=== PATIENT | male | born 1975 | race Caucasian/White ===

== ENCOUNTER 2017-03-04 21:48 | Inpatient (IN) | payer BC ==
[~2017-03-04] VITALS: Ht 182.9 cm; Wt 87.5 kg
[~2017-03-04 21:48] MED LIST: ANTIDEPRESSANT; FLEXERIL 1010 MG/TAB PO; FLEXERIL10 MG PO; LORTAB 5/500 501 TAB PO; NAPROSYN500 MG PO; NORCO 325 MG-51 TAB PO
[2017-03-04] MEDS ORDERED: CLEOCIN HC150 MG/CAP PO (21:55)
[2017-03-04 23:21] LABS: BASO % 0.2 % (0.0-2.0); EOS % 0.2 % (0-4.0); GRAN # 17.2 (1.4-6.5); GRAN % 87.3 % (42.2-75.2); HEMATOCRIT 46.3 % (42.0-52.0); HEMOGLOBIN 15.5 g/dl (13.5-18.0); LYMPH # 1.6 (1.2-3.4); LYMPH % 7.9 % (20.0-51.0); MEAN CELL VOLUME 97 fl (80.0-100.0); MEAN CORPUSCULAR HEMOGLOBIN 33 pg (27.0-31.0); MEAN CORPUSCULAR HGB CONC 34 g/dl (33.0-37.0); MEAN PLATELET VOLUME 10.5 fl (7.4-10.4); MONO # 0.8 (0.1-0.6); MONO % 3.9 % (1.7-9.3); PLATELET COUNT 259 K/mm3 (130-400); RED BLOOD COUNT 4.77 M/mm3 (4.20-5.60); REDCELL DISTRIBUTION WIDTH-CV 12.4 % (11.5-14.5)
[2017-03-04 23:31] LABS: CALCIUM 9.8 mg/dL (8.4-10.2); CREATININE, serum 0.79 mg/dL (0.66-1.25); POTASSIUM 4.3 mmol/L (3.4-5.0); TOTAL PROTEIN 8.3 gm/dL (6.4-8.2)
[2017-03-04 23:39] LABS: ALBUMIN 4.8 gm/dL (3.5-5.0)
[2017-03-04 23:45] LABS: C-REACTIVE PROTEIN 15.8 mg/dL (0.0-0.9)
[2017-03-05] VITALS (787 sets, daily range): BP systolic 110–141; BP diastolic 32–91; PULSE 84–120; TEMP 96.9–99.8; O2SAT 66–100
[2017-03-05 05:46] LABS: HEMATOCRIT 39.7 % (42.0-52.0); MEAN CELL VOLUME 96 fl (80.0-100.0); MEAN CORPUSCULAR HEMOGLOBIN 32 pg (27.0-31.0); MEAN CORPUSCULAR HGB CONC 34 g/dl (33.0-37.0); MEAN PLATELET VOLUME 10.2 fl (7.4-10.4); PLATELET COUNT 241 K/mm3 (130-400); RED BLOOD COUNT 4.12 M/mm3 (4.20-5.60); REDCELL DISTRIBUTION WIDTH-CV 12.5 % (11.5-14.5)
[2017-03-05 05:52] LABS: HEMOGLOBIN 13.3 g/dl (13.5-18.0)
[2017-03-05 05:59] LABS: CREATININE, serum 0.74 mg/dL (0.66-1.25); POTASSIUM 3.9 mmol/L (3.4-5.0)
[2017-03-06] VITALS (752 sets, daily range): BP systolic 102–142; BP diastolic 65–97; PULSE 80–108; TEMP 97.2–102.9; O2SAT 53–100
[2017-03-06 05:45] LABS: HEMATOCRIT 40.4 % (42.0-52.0); HEMOGLOBIN 13.8 g/dl (13.5-18.0); MEAN CELL VOLUME 96 fl (80.0-100.0); MEAN CORPUSCULAR HEMOGLOBIN 33 pg (27.0-31.0); MEAN CORPUSCULAR HGB CONC 34 g/dl (33.0-37.0); MEAN PLATELET VOLUME 10.8 fl (7.4-10.4); PLATELET COUNT 244 K/mm3 (130-400); RED BLOOD COUNT 4.21 M/mm3 (4.20-5.60); REDCELL DISTRIBUTION WIDTH-CV 12.5 % (11.5-14.5)
[2017-03-06 05:54] LABS: CALCIUM 9.4 mg/dL (8.4-10.2); CREATININE, serum 0.64 mg/dL (0.66-1.25); POTASSIUM 3.7 mmol/L (3.4-5.0)
[2017-03-06 06:29] LABS: BAND 27 % (0-10); LYMPHOCYTE 5 % (20.0-51.0); NEUTROPHILS 62 % (42.0-75.2)
[2017-03-06 06:30] LABS: PLATELET ESTIMATE NORMAL (NORMAL)
[2017-03-07] VITALS (509 sets, daily range): BP systolic 106–135; BP diastolic 69–96; PULSE 83–98; TEMP 99.1–100.3; O2SAT 86–100
[2017-03-07 05:57] LABS: HEMATOCRIT 39.8 % (42.0-52.0); HEMOGLOBIN 13.7 g/dl (13.5-18.0); MEAN CELL VOLUME 95 fl (80.0-100.0); MEAN CORPUSCULAR HEMOGLOBIN 33 pg (27.0-31.0); MEAN CORPUSCULAR HGB CONC 34 g/dl (33.0-37.0); MEAN PLATELET VOLUME 11.2 fl (7.4-10.4); PLATELET COUNT 264 K/mm3 (130-400); RED BLOOD COUNT 4.19 M/mm3 (4.20-5.60); REDCELL DISTRIBUTION WIDTH-CV 12.4 % (11.5-14.5)
[2017-03-07 06:43] LABS: C-REACTIVE PROTEIN 32.3 mg/dL (0.0-0.9)
[2017-03-07 07:07] LABS: CREATININE, serum 0.74 mg/dL (0.66-1.25); POTASSIUM 4.2 mmol/L (3.4-5.0)
[2017-03-07 07:08] LABS: CALCIUM 9.5 mg/dL (8.4-10.2)
[2017-03-07 07:46] LABS: BAND 38 % (0-10); LYMPHOCYTE 4 % (20.0-51.0); NEUTROPHILS 58 % (42.0-75.2); PLATELET ESTIMATE NORMAL (NORMAL)
[2017-03-08] VITALS (270 sets, daily range): BP systolic 118–134; BP diastolic 77–98; PULSE 89–115; TEMP 97.8–100; O2SAT 83–100
[2017-03-08 05:53] LABS: HEMATOCRIT 40.3 % (42.0-52.0); HEMOGLOBIN 13.9 g/dl (13.5-18.0); MEAN CELL VOLUME 94 fl (80.0-100.0); MEAN CORPUSCULAR HEMOGLOBIN 33 pg (27.0-31.0); MEAN CORPUSCULAR HGB CONC 35 g/dl (33.0-37.0); MEAN PLATELET VOLUME 10.7 fl (7.4-10.4); PLATELET COUNT 262 K/mm3 (130-400); RED BLOOD COUNT 4.28 M/mm3 (4.20-5.60); REDCELL DISTRIBUTION WIDTH-CV 12.4 % (11.5-14.5)
[2017-03-08 06:05] LABS: CALCIUM 9.8 mg/dL (8.4-10.2); CREATININE, serum 0.64 mg/dL (0.66-1.25); POTASSIUM 3.7 mmol/L (3.4-5.0)
[2017-03-08 06:17] LABS: BAND 9 % (0-10); LYMPHOCYTE 6 % (20.0-51.0); NEUTROPHILS 77 % (42.0-75.2)
[2017-03-08 06:19] LABS: PLATELET ESTIMATE NORMAL (NORMAL)
[2017-03-08 06:20] LABS: TOXIC GRANULATION PRESENT
[2017-03-09] VITALS (10 sets, daily range): BP systolic 122–137; BP diastolic 72–83; PULSE 77–101; TEMP 97.1–99.2
[2017-03-09 04:38] LABS: HEMATOCRIT 39.3 % (42.0-52.0); HEMOGLOBIN 13.6 g/dl (13.5-18.0); MEAN CELL VOLUME 94 fl (80.0-100.0); MEAN CORPUSCULAR HEMOGLOBIN 33 pg (27.0-31.0); MEAN CORPUSCULAR HGB CONC 35 g/dl (33.0-37.0); MEAN PLATELET VOLUME 10.9 fl (7.4-10.4); PLATELET COUNT 259 K/mm3 (130-400); RED BLOOD COUNT 4.18 M/mm3 (4.20-5.60); REDCELL DISTRIBUTION WIDTH-CV 12.3 % (11.5-14.5)
[2017-03-09 04:49] LABS: CALCIUM 9.7 mg/dL (8.4-10.2); CREATININE, serum 0.68 mg/dL (0.66-1.25); POTASSIUM 3.8 mmol/L (3.4-5.0)
[2017-03-09 04:58] LABS: BAND 5 % (0-10); LYMPHOCYTE 11 % (20.0-51.0); NEUTROPHILS 76 % (42.0-75.2)
[2017-03-09 04:59] LABS: ANISOCYTOSIS 2+; POLYCHROMASIA 1+
[2017-03-10 04:30] VITALS: BP 142/79; PULSE 97; TEMP 98.4
[2017-03-10 08:20] VITALS: BP 124/75; PULSE 95; TEMP 98.2
[2017-03-10 08:40] LABS: HEMATOCRIT 38.4 % (42.0-52.0); HEMOGLOBIN 13.3 g/dl (13.5-18.0); MEAN CELL VOLUME 94 fl (80.0-100.0); MEAN CORPUSCULAR HEMOGLOBIN 33 pg (27.0-31.0); MEAN CORPUSCULAR HGB CONC 35 g/dl (33.0-37.0); MEAN PLATELET VOLUME 11.1 fl (7.4-10.4); PLATELET COUNT 297 K/mm3 (130-400); RED BLOOD COUNT 4.08 M/mm3 (4.20-5.60); REDCELL DISTRIBUTION WIDTH-CV 12.5 % (11.5-14.5)
[2017-03-10 09:05] LABS: BAND 4 % (0-10); EOSINOPHIL 1 % (0-4); LYMPHOCYTE 10 % (20.0-51.0); NEUTROPHILS 79 % (42.0-75.2); PLATELET ESTIMATE NORMAL (NORMAL)
[2017-03-10 12:02] VITALS: BP 140/78; PULSE 95; TEMP 98.1
[2017-03-10] MEDS ORDERED: Remove Patch TD (12:05)
[2017-03-10] MEDS ORDERED: CLEOCIN HC150 MG/CAP PO (12:06)
[2017-03-10] MEDS ORDERED: LEVAQUIN 750MG750 M1 PO (12:07)
[2017-03-10] MEDS ORDERED: COLACE 100100 MG/CAP PO (12:08)
== END 2017-03-10 13:26 | disposition home or self-care (01) | DRG 13 ==
LOC: COL.ER 21:48 → ICU 03-05 02:00 → SURG 03-08 14:50 → MEDICAL 03-08 14:51
PROVIDERS: Physician Assistant; Student in an Organized Health Care Education/Training Program
PROC: 0CDXXZ0 Extraction of Lower Tooth, Single, External Approach (ICD-10-PCS; 2017-03-05)
PROC: 0B110F4 Bypass Trachea to Cutaneous with Tracheostomy Device, Open Approach (ICD-10-PCS; principal; 2017-03-05 02:00)
PROC: 0W9500Z Drainage of Lower Jaw with Drainage Device, Open Approach (ICD-10-PCS; 2017-03-05 02:00)
PROC: 0W9500Z Drainage of Lower Jaw with Drainage Device, Open Approach (ICD-10-PCS; 2017-03-06)
DX: K12.2 Cellulitis and abscess of mouth (principal); F17.210 Nicotine dependence, cigarettes, uncomplicated; B96.20 Unspecified Escherichia coli [E. coli] as the cause of diseases classified elsewhere; B95.4 Other streptococcus as the cause of diseases classified elsewhere; R13.10 Dysphagia, unspecified; K04.7 Periapical abscess without sinus
CPT/HCPCS: 99223; 99232-AI; A9284; J0330; J0690; J1100; J1170; J1644; J1956; J2060; J2250; J2405; J2704; J3010; J3411; J3480; J7030; J7050; J7120; Q9967

== ENCOUNTER 2020-01-15 00:01 | Emergency (ER) | payer BC ==
[~2020-01-15] VITALS: Ht 182.9 cm; Wt 80.9 kg
[~2020-01-15 00:01] MED LIST changes: +B & O SUPPRETTE1 SUP RC; +CLEOCIN HC150 MG/CAP PO; +COLACE 100100 MG/CAP PO; +LEVAQUIN 750MG750 M1 PO; +MIRALAX238G PO; +PROCTOFOAM-HC F10 G1 RC; +Remove Patch TD
[2020-01-15 00:12] VITALS: TEMP 98.1
[2020-01-15] MEDS ORDERED: NORCO 325 MG-51 TAB PO (01:13)
[2020-01-15] MEDS ORDERED: NUPERCAINAL OIN30 GM RC (01:13)
[2020-01-15 02:12] VITALS: BP 131/103; PULSE 98
== END 2020-01-15 02:10 | disposition home or self-care (01) ==
LOC: COL.ER 00:01
DX: K64.9 Unspecified hemorrhoids (principal); F17.210 Nicotine dependence, cigarettes, uncomplicated; Z88.8 Allergy status to other drugs, medicaments and biological substances
CPT/HCPCS: J1170; J2550

== ENCOUNTER 2020-10-29 02:29 | Emergency (ER) | payer BC ==
[~2020-10-29] VITALS: Ht 182.9 cm; Wt 79.5 kg
[~2020-10-29 02:29] MED LIST changes: +NUPERCAINAL OIN30 GM RC
[2020-10-29 02:55] LABS: COLLECTION METHOD CLEAN CATCH
[2020-10-29 03:02] LABS: PH 6 (5-8); SQUAMOUS EPITHELIAL None Seen /hpf; URINE APPEARANCE Clear; URINE BACTERIA None Seen /hpf; URINE BILIRUBIN Negative (NEGATIVE); URINE BLOOD Negative (NEGATIVE); URINE COLOR Colorless; URINE GLUCOSE Negative (NEGATIVE); URINE KETONE Negative (NEGATIVE); URINE LEUKOCYTE ESTERASE Negative (NEGATIVE); URINE NITRATE Negative (NEGATIVE); URINE PROTEIN(semi-quant) Negative (NEGATIVE); URINE RBC None Seen /hpf; URINE UROBILINOGEN Negative (NEGATIVE)
[2020-10-29 03:15] LABS: TRICYCLIC ANTIDEPRESS URINE NEGATIVE
[2020-10-29 03:26] LABS: BASO % 0.7 % (0.0-2.0); EOS # 0.1 (0.0-0.7); EOS % 0.9 % (0-4.0); GRAN # 3.6 (1.4-6.5); GRAN % 61.3 % (42.2-75.2); HEMATOCRIT 49.1 % (42.0-52.0); HEMOGLOBIN 16.7 g/dl (13.5-18.0); LYMPH # 1.6 (1.2-3.4); MEAN CELL VOLUME 97 fl (80.0-100.0); MEAN CORPUSCULAR HEMOGLOBIN 33 pg (27.0-31.0); MEAN CORPUSCULAR HGB CONC 34 g/dl (33.0-37.0); MEAN PLATELET VOLUME 10.5 fl (7.4-10.4); MONO # 0.5 (0.1-0.6); MONO % 8.9 % (1.7-9.3); PLATELET COUNT 171 K/mm3 (130-400); RED BLOOD COUNT 5.05 M/mm3 (4.20-5.60); REDCELL DISTRIBUTION WIDTH-CV 12.9 % (11.5-14.5)
[2020-10-29 03:38] LABS: ALANINE AMINOTRANSFERASE 21 U/L (4-49); ALBUMIN 4.4 gm/dL (3.5-5.0); ALCOHOL(ethanol),MEDICAL 237 mg/dL; ALKALINE PHOSPHATASE 93 U/L (50-136); ANION GAP 11 mmol/L (7-16); AST,SGOT 34 U/L (15-37); BILIRUBIN,TOTAL 0.4 mg/dL (0.0-1.0); BLOOD UREA NITROGEN 6 mg/dL (9-20); CARBON DIOXIDE 22 mmol/L (22-30); CHLORIDE 114 mmol/L (98-107); CREATININE, serum 0.77 (0.66-1.25); GLUCOSE 103 mg/dL (74-106); POTASSIUM 4.1 mmol/L (3.4-5.0); SODIUM 147 mmol/L (137-145); TOTAL PROTEIN 7.5 gm/dL (6.4-8.2)
[2020-10-29 03:39] LABS: ACETAMINOPHEN < 10 ug/mL (10-30); SALICYLATE < 1.0 mg/dL
[2020-10-29 04:33] VITALS: BP 128/91; PULSE 94; TEMP 98
== END 2020-10-29 04:33 | disposition home or self-care (01) ==
LOC: COL.ER 02:29
PROVIDERS: Student in an Organized Health Care Education/Training Program
DX: F10.129 Alcohol abuse with intoxication, unspecified (principal); Y90.8 Blood alcohol level of 240 mg/100 ml or more

== ENCOUNTER 2021-04-05 17:36 | Emergency (ER) | payer SELFPAY ==
[~2021-04-05] VITALS: Ht 182.9 cm; Wt 84.1 kg
[2021-04-05 17:52] VITALS: TEMP 98.2
[2021-04-05] MEDS ORDERED: FLEXERIL 1010 MG/TAB PO (18:08)
[2021-04-05 18:19] VITALS: BP 132/74; PULSE 68
== END 2021-04-05 18:19 | disposition home or self-care (01) ==
LOC: COL.ER 17:36
DX: S39.011A Strain of muscle, fascia and tendon of abdomen, initial encounter (principal); F17.210 Nicotine dependence, cigarettes, uncomplicated; X50.9XXA Other and unspecified overexertion or strenuous movements or postures, initial encounter; Y92.59 Other trade areas as the place of occurrence of the external cause; Y99.0 Civilian activity done for income or pay

== ENCOUNTER 2021-10-23 15:30 | Inpatient (IN) | payer BC ==
[~2021-10-23] VITALS: Ht 182.9 cm; Wt 74.5 kg
[2021-10-23] VITALS (281 sets, daily range): BP systolic 104–144; BP diastolic 70–105; PULSE 82–97; TEMP 97.7; O2SAT 71–100
[2021-10-23 15:46] LABS: BASO % 0.4 % (0.0-2.0); GRAN # 8.1 K/mm3 (1.4-6.5); GRAN % 80.3 % (42.2-75.2); HEMATOCRIT 43.7 % (42.0-52.0); HEMOGLOBIN 15.2 g/dl (13.5-18.0); LYMPH # 1.3 K/mm3 (1.2-3.4); LYMPH % 12.4 % (20.0-51.0); MEAN CELL VOLUME 97 fl (80.0-100.0); MEAN CORPUSCULAR HEMOGLOBIN 34 pg (27-31); MEAN CORPUSCULAR HGB CONC 35 g/dl (33.0-37.0); MEAN PLATELET VOLUME 10.5 fl (7.4-10.4); MONO # 0.7 K/mm3 (0.1-0.6); MONO % 6.5 % (1.7-9.3); PLATELET COUNT 191 K/mm3 (130-400); RED BLOOD COUNT 4.51 M/mm3 (4.20-5.60); REDCELL DISTRIBUTION WIDTH-CV 13.3 % (11.5-14.5)
[2021-10-23 16:04] LABS: ALANINE AMINOTRANSFERASE 26 U/L (0-55); ALBUMIN 3.9 gm/dL (3.5-5.0); ALKALINE PHOSPHATASE 95 U/L (40-150); ANION GAP 19 mmol/L (7-16); AST,SGOT 31 U/L (5-34); BILIRUBIN,TOTAL 0.5 mg/dL (0.2-1.2); CALCIUM 9.1 mg/dL (8.4-10.2); CARBON DIOXIDE 15 mmol/L (22-29); CHLORIDE 105 mmol/L (98-107); CREATININE, serum 0.83 mg/dL (0.72-1.25); GLUCOSE 69 mg/dL (70-99); POTASSIUM 3.9 mmol/L (3.5-4.5); SODIUM 139 mmol/L (136-145); TOTAL PROTEIN 6.7 gm/dL (6.2-8.1)
[2021-10-23 16:27] LABS: ARTERIAL BLD GAS O2 SATURATION 98.9 % (92-100); ARTERIAL BLD GAS TCO2 CT 19.4; ARTERIAL BLOOD GAS BASE EXCESS -8.6 (-2-2); ARTERIAL BLOOD GAS HCO3 18.1 meq/L (22-26); ARTERIAL BLOOD GAS PCO2 41.6 mmHg (35-45); ARTERIAL BLOOD GAS pH 7.26 (7.35-7.45)
[2021-10-23 16:29] LABS: ARTERIAL BLOOD GAS PO2 172.3 mmHg (80-100)
[2021-10-23] MEDS ORDERED: AMLODIPINE BESYLATE/ (16:40)
[2021-10-23] MEDS ORDERED: PAXIL40 MG PO (16:40)
[2021-10-23] MEDS ORDERED: XANAX 1MG1 MG PO (16:40)
[2021-10-23] MEDS ORDERED: TOPROL XL100 MG PO (16:40)
[2021-10-23 16:42] LABS: BLOOD UREA NITROGEN 16 mg/dL (9-21)
[2021-10-23 16:43] LABS: ACETAMINOPHEN < 1.0 ug/mL (10-30); ALCOHOL(ethanol),MEDICAL 144 mg/dL (0-10); SALICYLATE < 5.0 mg/dL (15.0-30.0); TSH w REFLEX 0.639 uIU/mL (0.350-4.940)
[2021-10-23] MEDS ORDERED: LOTREL 5/10MG C1 CAP PO (16:48)
--- NOTE | 2021-10-23 18:52 | NUR ---
1813- PT OVER FROM ED. PT IS ASLEEP BUT WAKES TO PAINFUL STIMULI. PATIENT MOVED TO OVER BED. PT ANSWERED SOME QUESTIONS BUT NOT ALL HE BECAME DROWSY AND DISTRACTED. PT DID STATE HE DID NOT WANT ME TO TALK TO HIS . BED ALARM ON. ALL BELONGINGS WERE GIVEN TO SECURITY IN ED. PT IS ON ICU MONITORING. PT GIVEN CALL LIGHT
--- NOTE | 2021-10-23 20:00 | NUR ---
SHIFT REPORT RECEIVED. PT ON SUICIDE PRECAUTIONS. PERSONAL BELONGINGS WITH SECURITY. PT ORIENTED TO SELF, TIME AND SITUATION. PT HAS CLEAR SPEECH, SPEAKS REPETITIVELY, SPEECH IS SOMETIMES DISORGANIZIED. PT NEEDS FREQUENT REMINDERS TO SAFETY AND LIMITATIONS. BED ALARM IN PLACE. PT WITH WEAKNESS AND DIZZINESS WHEN STANDING. PT HAS MILD TREMORS, DENIES BEING COLD, REPORTS TREMORS HAPPEN FREQUENTLY AT HOME. PT ON ROOM AIR WHILE AWAKE AND ON 4L OXYMASK WHILE ASLEEP. PT SNORS WHILE SLEEPING.
[2021-10-23 20:58] LABS: ARTERIAL BLD GAS O2 SATURATION 90.7 % (92-100); ARTERIAL BLD GAS TCO2 CT 22.6; ARTERIAL BLOOD GAS BASE EXCESS -1.9 (-2-2); ARTERIAL BLOOD GAS HCO3 21.5 meq/L (22-26); ARTERIAL BLOOD GAS PCO2 33.5 mmHg (35-45); ARTERIAL BLOOD GAS PO2 56.4 mmHg (80-100); ARTERIAL BLOOD GAS pH 7.43 (7.35-7.45)
--- NOTE | 2021-10-23 21:34 | NUR ---
PT ESCORTED BY THIS NURSE VIA WHEELCHAIR TO RADIOLOGY FOR CT HEAD. RETURNED TO PT ROOM [id number]
[2021-10-23 23:45] LABS: COLLECTION METHOD CLEAN CATCH
[2021-10-24] VITALS (1183 sets, daily range): BP systolic 108–146; BP diastolic 69–102; PULSE 76–106; TEMP 98–99.4; O2SAT 84–100
[2021-10-24 00:02] LABS: SQUAMOUS EPITHELIAL 0-2 /hpf (0-10); URINE BACTERIA None Seen /hpf (NONE SEEN); URINE RBC None Seen /hpf (0-2)
[2021-10-24 00:03] LABS: URINE APPEARANCE Clear (CLEAR/HAZY); URINE BLOOD Negative (NEGATIVE); URINE COLOR Yellow (YELLOW); URINE GLUCOSE Negative (NEGATIVE); URINE KETONE 2+ (NEGATIVE); URINE NITRATE Negative (NEGATIVE); URINE PROTEIN(semi-quant) Negative (NEGATIVE); URINE UROBILINOGEN 0.2 E.U/dL (0.2-1.0)
[2021-10-24 00:04] LABS: TRICYCLIC ANTIDEPRESS URINE NEGATIVE
--- NOTE | 2021-10-24 02:40 | NUR ---
SPOKE WITH POISION CONTROL JOSIAS. GAVE UPDATES ON PT CONDITION AND UPDATED VS. POISION CONTROL STATED THAT MEDICATIONS PT TOOK ARE PAST THE TIME IN WHICH THEY COULD CAUSE ADVERSE EFFECTS FOR THE PT. THEY ARE CLOSING THEIR CASE ON THE PT. HOSPITALIST NOTIFIED.
[2021-10-24 06:01] LABS: BASO # 0.1 K/mm3 (0.0-0.2); BASO % 0.8 % (0.0-2.0); EOS # 0.1 K/mm3 (0.0-0.7); EOS % 1.2 % (0.0-4.0); GRAN # 4.5 K/mm3 (1.4-6.5); GRAN % 68.1 % (42.2-75.2); HEMATOCRIT 44.6 % (42.0-52.0); HEMOGLOBIN 15.3 g/dl (13.5-18.0); LYMPH # 1.4 K/mm3 (1.2-3.4); LYMPH % 21.7 % (20.0-51.0); MEAN CELL VOLUME 100 fl (80.0-100.0); MEAN CORPUSCULAR HEMOGLOBIN 34 pg (27-31); MEAN CORPUSCULAR HGB CONC 34 g/dl (33.0-37.0); MONO # 0.5 K/mm3 (0.1-0.6); MONO % 7.7 % (1.7-9.3); PLATELET COUNT 170 K/mm3 (130-400); RED BLOOD COUNT 4.45 M/mm3 (4.20-5.60); REDCELL DISTRIBUTION WIDTH-CV 13.3 % (11.5-14.5)
[2021-10-24 06:16] LABS: ALBUMIN 3.6 gm/dL (3.5-5.0); CALCIUM 9.6 mg/dL (8.4-10.2); CREATININE, serum 0.75 mg/dL (0.72-1.25); MAGNESIUM 2.2 mg/dL (1.6-2.6); PHOSPHOROUS 2.4 mg/dL (2.3-4.7); POTASSIUM 4.2 mmol/L (3.5-4.5)
--- NOTE | 2021-10-24 06:34 | NUR ---
PT WAS ABLE TO SLEEP MOST OF THE NIGHT. THIS MORNING WAS ORIENTED TO OWN ABILITES.
--- NOTE | 2021-10-24 09:02 | NUR ---
BEDSIDE REPORT RECIEVED FROM MEGAN JONES. PT IS RESTING IN BED. VSS, ASSESSMENT WNL. PT DENIES NEEDS AT THIS TIME AND USES CALL LIGHT FOR NEEDS.
--- NOTE | 2021-10-24 17:00 | NUR ---
Patient will be screened by mental health provider when medically cleared. Worker will follow and assist as needed with discharge planning.
--- NOTE | 2021-10-24 20:30 | NUR ---
PT SITTING UP IN BED, DENIES PAIN. STATES NO SUICIDAL IDEATION AT THIS TIME. PT IS TEARFUL, STATES FEELING EXHAUSTED AND OVERWHELMED. PT DID MAKE PHONE CALL TO TO LET HER KNOW WHERE HE WAS. THIS RN SPOKE TO WELL, UPDATED WITH STATUS PER PT REQUEST. PT AND UNDERSTAND PROCESS OF PSYCH SCREENING AND SAFETY. PT ASKS THAT BE UPDATED AFTER SCREEN TOMORROW. WILL PASS ALONG TO DAYSHIFT RN. PT STATES JUST WANTS TO BE ABLE TO SLEEP TONIGHT. MEDICATED WITH [facility] PROTOCOL, WILL CONTINUE TO MONITOR.
[2021-10-24] MEDS ORDERED: NICODERM C21 MG/PATC TD (23:19)
[2021-10-24] MEDS ORDERED: FOLIC ACID 11 MG/TA1 PO (23:19)
[2021-10-24] MEDS ORDERED: DUO-KAPS1 CAP PO (23:20)
[2021-10-24] MEDS ORDERED: THIAMINE 1100 MG/TAB PO (23:20)
[2021-10-25] VITALS (1035 sets, daily range): BP systolic 126–159; BP diastolic 90–114; PULSE 76–120; TEMP 98–98.8; O2SAT 74–100
[2021-10-25 05:44] LABS: BASO % 0.4 % (0.0-2.0); EOS # 0.1 K/mm3 (0.0-0.7); EOS % 1.3 % (0.0-4.0); GRAN # 2.4 K/mm3 (1.4-6.5); GRAN % 52.7 % (42.2-75.2); HEMATOCRIT 47.5 % (42.0-52.0); HEMOGLOBIN 16.1 g/dl (13.5-18.0); LYMPH # 1.6 K/mm3 (1.2-3.4); LYMPH % 35.1 % (20.0-51.0); MEAN CELL VOLUME 100 fl (80.0-100.0); MEAN CORPUSCULAR HEMOGLOBIN 34 pg (27-31); MEAN CORPUSCULAR HGB CONC 34 g/dl (33.0-37.0); MONO # 0.5 K/mm3 (0.1-0.6); MONO % 10.3 % (1.7-9.3); PLATELET COUNT 149 K/mm3 (130-400); RED BLOOD COUNT 4.76 M/mm3 (4.20-5.60); REDCELL DISTRIBUTION WIDTH-CV 12.8 % (11.5-14.5)
[2021-10-25 05:59] LABS: ALBUMIN 3.7 gm/dL (3.5-5.0); CALCIUM 9.9 mg/dL (8.4-10.2); CREATININE, serum 0.75 mg/dL (0.72-1.25); MAGNESIUM 2.1 mg/dL (1.6-2.6); PHOSPHOROUS 3.5 mg/dL (2.3-4.7); POTASSIUM 3.7 mmol/L (3.5-4.5)
--- NOTE | 2021-10-25 07:25 | NUR ---
Initial visit; Chaplain Verma called in to offer Spiritual Care to patient. Patient experiencing numerous personal and spiritual isses that he discussed with Chaplain Verma. Community Engagement Representative offered prayer and empathy. Patient thanked facility supervisor.
[2021-10-25] MEDS ORDERED: INCRUSE EL62.5 MCG/A IH (12:40)
--- NOTE | 2021-10-25 14:05 | NUR ---
PT'S CALLED THIS NURSE TO INQUIRE ABOUT PT'S BELONGING. PT STATES THAT HE IS OKAY WITH LETTING HER KNOW WHAT BELONGINGS ARE IN OUR POSSESSION. ALSO LET THIS NURSE KNOW THAT PT REMOVED ALL FUNDS FROM THEIR BANK ACCOUNT AND SHE IS NEEDING MONEY FOR HOUSEHOLD BILLS ETC AND WOULD LIKE TO COME GET JOHNSON FROM PT. PT STATES HE IS OKAY WITH THAT BEING DONE. PT'S ARRIVED TO ICU. PT'S BELONGINGS RECEIVED FROM SECURITY. PT GIVEN WALLET AND ENVELOPE TO PLACE MONEY IN. PT PLACED UNKNOWN AMOUNT OF MONEY INTO ENVELOPE AND SEALED SHUT. PT RETUREND WALLET BACK TO THIS NURSE. ENVELOPE WITH MONEY WAS GIVEN TO PT'S . PT'S THOMAS TO VEHICLE WAS ALSO GIVEN TO PT'S WITH PT'S PERMISSION. PT'S WALLET AND OTHER BELONGINGS WERE THEN RETURNED TO [facility] WITH SECURITY. ALL OF THESE ACTIONS WERE ALSO WITNESSED BY VALENTÍN Cyr RN.
--- NOTE | 2021-10-25 15:05 | NUR ---
DR. NEWMAN HERE TO SEE PT AT THIS TIME. DR. NEWMAN RECOMMENDED TO PT THAT HE GO TO A TREATMENT CENTER TO ASSIST WITH DETOX/DEPRESSION. PT IS AGREEABLE TO THAT PLAN AT THIS TIME. WILEY MAHAJAN CONTACTED BY THIS NURSE AND SHE WILL BEGIN LOOKING FOR PLACEMENT FOR PATIENT FOR INPATIENT DETOX.
--- NOTE | 2021-10-25 15:32 | NUR ---
DR. AGUIRRE MADE AWARE OF DR. NEWMAN'S ASSESSMENT OF PT. DR. AGUIRRE STATES THAT PT CAN BE TAKEN OFF OF 15 MINUTES SUICIDE CHECKS DUE TO NO LONGER BEING SUICIDAL. CONTINUE [facility] PROTOCOL.
--- NOTE | 2021-10-25 16:27 | NUR ---
[facility] Supervisor Lupe collaborated with Dr. Tavares regarding placement recommendations. This SW faxed referrals to [facility], [facility], and [facility]. SW updated [facility]REL HEAD[facility].
--- NOTE | 2021-10-25 17:41 | NUR ---
ARTERIAL LINE REMOVED FROM RIGHT RADIAL. PRESSURE HELD FOR 5 MINUTES THEN COVERED WITH 4X4 AND TAPE. SITE SOFT AND DRY WITH NO HEMATOMA. NO OBVIOUS BLEEDING AFTER 5 MINUTES.
[2021-10-26] VITALS (605 sets, daily range): BP systolic 114–135; BP diastolic 85–102; PULSE 89–117; TEMP 97.9–98.1; O2SAT 91–100
[2021-10-26 06:10] LABS: BASO % 0.5 % (0.0-2.0); EOS # 0.1 K/mm3 (0.0-0.7); EOS % 1.6 % (0.0-4.0); GRAN # 2.2 K/mm3 (1.4-6.5); GRAN % 51.2 % (42.2-75.2); HEMATOCRIT 47.5 % (42.0-52.0); HEMOGLOBIN 16.2 g/dl (13.5-18.0); LYMPH # 1.6 K/mm3 (1.2-3.4); LYMPH % 37.7 % (20.0-51.0); MEAN CELL VOLUME 97 fl (80.0-100.0); MEAN CORPUSCULAR HEMOGLOBIN 33 pg (27-31); MEAN CORPUSCULAR HGB CONC 34 g/dl (33.0-37.0); MEAN PLATELET VOLUME 10.9 fl (7.4-10.4); MONO # 0.4 K/mm3 (0.1-0.6); MONO % 8.8 % (1.7-9.3); PLATELET COUNT 149 K/mm3 (130-400); RED BLOOD COUNT 4.89 M/mm3 (4.20-5.60); REDCELL DISTRIBUTION WIDTH-CV 12.4 % (11.5-14.5)
[2021-10-26 06:31] LABS: ALBUMIN 3.6 gm/dL (3.5-5.0); CALCIUM 9.9 mg/dL (8.4-10.2); CREATININE, serum 0.73 mg/dL (0.72-1.25); PHOSPHOROUS 4.2 mg/dL (2.3-4.7); POTASSIUM 3.5 mmol/L (3.5-4.5)
--- NOTE | 2021-10-26 12:36 | NUR ---
Pt discharged to home at this time. Pt has verbalized that he understands he is to go home and shower/get belongings then proceed to [facility] in [place]. Pt also understands that he has to be there by midnight tonight in order to accepted. Pt's family friend/value stream coach transporting pt to home then assisting pt with getting to [facility] in [place]. Pt offers no questions/concerns. All discharge instructions given.
--- NOTE | 2021-10-26 16:10 | NUR ---
Patient was accepted to [facility] in [place], [place] and agreed to arrange a ride to arrive there before midnight tonight. Patient states that he has utilizied [facility] previously. Worker met with patient and provided items that patient will need to bring to [facility].
== END 2021-10-26 12:36 | DRG 917 ==
LOC: COL.ER 15:30 → ICU 16:35 → EU 10-25 19:05 → ICU 10-25 19:05 → EU 10-25 19:11 → ICU 10-26 12:36
PROVIDERS: Emergency Medicine; Internal Medicine Pulmonary Disease; ADMIT Internal Medicine
DX: T46.1X2A Poisoning by calcium-channel blockers, intentional self-harm, initial encounter (principal); J96.01 Acute respiratory failure with hypoxia; G93.41 Metabolic encephalopathy; E87.2 Acidosis; F10.14 Alcohol abuse with alcohol-induced mood disorder; F10.131 Alcohol abuse with withdrawal delirium; I10 Essential (primary) hypertension; F32.A Depression, unspecified; Y90.6 Blood alcohol level of 120-199 mg/100 ml; F41.0 Panic disorder [episodic paroxysmal anxiety]; T51.92XA Toxic effect of unspecified alcohol, intentional self-harm, initial encounter; T42.4X2A Poisoning by benzodiazepines, intentional self-harm, initial encounter; F17.210 Nicotine dependence, cigarettes, uncomplicated; F41.9 Anxiety disorder, unspecified; Z88.8 Allergy status to other drugs, medicaments and biological substances; Z72.89 Other problems related to lifestyle; Y92.89 Other specified places as the place of occurrence of the external cause
CPT/HCPCS: J1610; J1644; J2060; J7030

== ENCOUNTER 2023-03-12 00:50 | Emergency (ER) | payer BC ==
[~2023-03-12] VITALS: Ht 182.9 cm; Wt 70.5 kg
[~2023-03-12 00:50] MED LIST changes: +AMLODIPINE BESYLATE/; +DUO-KAPS1 CAP PO; +FOLIC ACID 11 MG/TA1 PO; +INCRUSE EL62.5 MCG/A IH; +LOTREL 5/10MG C1 CAP PO; +NICODERM C21 MG/PATC TD; +PAXIL40 MG PO; +THIAMINE 1100 MG/TAB PO; +TOPROL XL100 MG PO; +XANAX 1MG1 MG PO
[2023-03-12 02:50] VITALS: BP 119/77; PULSE 83; TEMP 98
== END 2023-03-12 02:50 | disposition home or self-care (01) ==
LOC: COL.ER 00:50
DX: S90.31XA Contusion of right foot, initial encounter (principal); F17.210 Nicotine dependence, cigarettes, uncomplicated; W22.8XXA Striking against or struck by other objects, initial encounter